=== PATIENT | male | born 1995 | race Caucasian/White ===

== ENCOUNTER 2017-10-06 01:12 | Emergency (ER) | payer MEDICAID, OTHER ==
[2017-10-06] MEDS ORDERED: NS 0.9% 1000 ML* 1,000 ML IV ONE (01:29)
[2017-10-06] MEDS ORDERED: Morphine INJ* 2 MG/ML 1 ML SYRINGE (TWO MG - NEW SYRINGE VERSION) IV ONE ×2 (01:30→03:08)
[2017-10-06] MEDS ORDERED: Metoclopramide IV* 5 MG/ML 2 ML VIAL IV SLOW PU ONE (01:30)
[2017-10-06 01:45] LABS: ABS Basophils 0 10^3/ul (0-0.2); ABS Eosinophils 0.1 10^3/ul (0-0.6); ABS Lymphocytes 2.8 10^3/ul (1.0-4.8); ABS Monocytes 0.6 10^3/ul (0-0.8); ABS Neutrophils 3.1 10^3/ul (1.5-7.7); ABS Nucleated RBC 0 10^3/ul; Hematocrit 42 % (42-52); Hemoglobin 14.6 g/dl (14.0-18.0); Lymphocyte % 42.2 % (25-47); Mean Corpuscular HGB Conc 35 g/dl (31-36); Mean Corpuscular Hemoglobin 31 pg (27-31); Mean Corpuscular Volume 90 fL (80-94); Mean Platelet Volume 7.1 um3 (7.4-10.4); Nucleated Red Blood Cells % 0.1; Platelet Count 184 10^3/ul (150-450); Red Blood Count 4.68 10^6/ul (4.00-5.40); Red Cell Distribution Width 13 % (10.5-15); White Blood Count 6.5 10^3/ul (3.5-10.8)
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
[2017-10-06 02:00] LABS: EGFR Non-African American 114.9 (>60)
[2017-10-06 02:02] LABS: INR 0.94 (0.77-1.02)
[2017-10-06] MEDS ORDERED: Iohexol 300* (CONTRAST) 10 ML SDV IV ONE (02:09)
[2017-10-06 03:53] VITALS: BP 119/69
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
== END 2017-10-06 03:51 | disposition home or self-care (01) ==
LOC: ED 01:12
DX: S20.211A Contusion of right front wall of thorax, initial encounter (principal); V86.56XA Driver of dirt bike or motor/cross bike injured in nontraffic accident, initial encounter; Y93.55 Activity, bike riding; Y92.480 Sidewalk as the place of occurrence of the external cause; F17.210 Nicotine dependence, cigarettes, uncomplicated
CPT/HCPCS: 36415; 71260; 74177; 80053; 82150; 82550; 83690; 85025; 85610; 85730; 96361; 96374; 96375; 96376; 99284; J2270; J2765; Q9967

== ENCOUNTER 2018-11-18 10:12 | Emergency (ER) | payer OTHER ==
--- NOTE | 2018-11-18 11:50 | ED ---
Lower Extremity - HPI Summary HPI Summary: This patient is a 23 year old M [facility] with a chief complaint of right thigh pain due to a chain that holds boards scraping across his right thigh and then a fall over the chain that occurred at work, with pain that has since worsened. 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 Patient states that he had to get up on the 3 foot platform in order to adjust the board of wood. Patient states that he turned around and slipped off the platform and landed on the chain. As a result the patient injured his right thigh. Patient states that he did not hit his head, but he did fall forward across the chain, but did not fall to the ground. The patient rates the pain 6/10 at rest and 8/10 when bearing weight characterized as sharp. Symptoms aggravated by bearing weight on right leg. Symptoms alleviated by nothing. Patient also explained that he has cold like symptoms that started on 11/17/18 which are unrelated. Patient states that these cold symptoms are cough and runny nose. Patient states that he took cough medicine for these symptoms, but he did not take pain medication for the right thigh pain. Patient reports bruise on right thigh and right thigh pain. Patient denies JUDD. Pt states he was able to finish his work day on 11/16/18 but did not go to work yesterday on 11/17/18 due to pain, and then presented to the ED today by private car with his grandfather driving, due to the pain. Allergies Allergy/AdvReac Type Severity Reaction Status Date / Time No Known Allergies Allergy Verified 11/18/18 10:17 - History of Current Complaint Chief Complaint: EDExtremityLower Stated Complaint: RT LEG INJ PER PT Time Seen by Provider: 11/18/18 11:33 Hx Obtained From: Patient Mechanism Of Injury: Direct Blow - from chain to right thigh, Fall From Height Of: - standing, but at 3 feet above ground. Fell across chain that holds boards at work Onset of Pain: Immediate Onset/Duration: Still Present - since 11/16/18 Severity Initially: Moderate Severity Currently: Severe Pain Intensity: 8 Pain Scale Used: 0-10 Numeric Timing: Constant Location: Is Discrete @ - right thigh Character Of Pain: Sharp Associated Signs And Symptoms: Positive: Bruising - right thigh, Other - Negative-head injury, Positive-right thigh pain, cough, runny nose Aggravating Factor(s): Weight Bearing Alleviating Factor(s): Nothing Able to Bear Weight: No - not without pain or limping Related History: Occupational Injury - Allergies/Home Medications Allergies/Adverse Reactions: Allergies Allergy/AdvReac Type Severity Reaction Status Date / Time No Known Allergies Allergy Verified 11/18/18 10:17 PMH/Surg Hx/FS Hx/Imm Hx Previously Healthy: Yes Endocrine/Hematology History: Denies: Hx Diabetes Cardiovascular History: Denies: Hx Hypertension History: Denies: Hx Renal Disease - Surgical History Surgical History: None Infectious Disease History: No Infectious Disease History: Denies: Traveled Outside the [place] in Last 30 Days - Family History Known Family History: Positive: Other - COPD Negative: Hypertension, Diabetes - Social History Occupation: Employed Full-time Alcohol Use: None Hx Substance Use: Yes Substance Use Type: Reports: Marijuana, Other - pt with prior hx heroin IVDU Hx Tobacco Use: Yes Smoking Status (MU): Current Every Day Smoker Type: Cigarettes Review of Systems Constitutional: Negative Positive: Nasal Discharge Cardiovascular: Negative Positive: Cough Gastrointestinal: Negative Positive: no symptoms reported Positive: Other - right thigh pain Positive: Bruising Negative: Headache Psychological: Normal All Other Systems Reviewed And Are Negative: Yes Physical Exam - Summary Physical Exam Summary: Appearance: well-appearing, moderate pain distress, well-nourished Skin: Warm, color reflects adequate perfusion, dry, 8 cm in diameter purple and yellow ecchymosis, painful to touch at right distal femur. Head: Normal Head/Face inspection, atraumatic Eyes: Conjunctiva clear ENT: Normal inspection Neck: Supple, no nodes, no JVD, no spinal tenderness Respiratory: Lungs clear, normal breath sounds, no respiratory distress Cardio: RRR, No murmur, pulses normal, brisk capillary refill Abdomen: Soft, nontender, nondistended, no masses, no guarding, no rebound Bowel sounds: Present Musculoskeletal: Strength Intact/ROM intact, no right leg bony tenderness especially in area of ecchymosis, no right leg hematoma in area of ecchymosis, no deformity of right leg; point tenderness on right lateral hip; pelvis stable on compression; no right knee deformity or tenderness on right foot or ankle, distal pulses intact, sensation intact, no calf tenderness, no edema. Psychological: Normal Neuro: Alert, muscle tone normal, no focal deficit Triage Information Reviewed: Yes Vital Signs On Initial Exam: Initial Vitals Temp Pulse Resp BP Pulse Ox 98.4 F 81 16 139/71 99 11/18/18 10:15 11/18/18 10:15 11/18/18 10:15 11/18/18 10:15 11/18/18 10:15 Vital Signs Reviewed: Yes Diagnostics - Vital Signs Vital Signs Temp Pulse Resp BP Pulse Ox 11/18/18 10:15 98.4 F 81 16 139/71 99 - Laboratory Lab Statement: Any lab studies that have been ordered have been reviewed, and results considered in the medical decision making process. - Radiology Hip/Pelvis Xray Radiology Interpretation Completed By: Radiologist Summary of Radiographic Findings: Hip/Pelvis Xray reveals, per radiologist, IMPRESSION: NO ACUTE OSSEOUS INJURY. NO RADIOGRAPHIC EVIDENCE FOR HIP FRACTURE. X-RAYS MAY BE NEGATIVE WITH NONDISPLACED HIP FRACTURE, IF THERE IS PERSISTENT CLINICAL CONCERN, RECOMMEND CONSIDERATION OF MRI. IN THE SETTING OF CONTRAINDICATION TO MRI OR LIMITATION IN EMERGENT ACCESS TO MRI, CT WOULD BE SUGGESTED. ED Physician has reviewed this report. Right Femur Xray Radiology Interpretation Completed By: Radiologist Summary of Radiographic Findings: Right Femur Xray reveals, per radiologist, IMPRESSION: NO ACUTE OSSEOUS INJURY. NO RADIOGRAPHIC EVIDENCE FOR HIP FRACTURE. X-RAYS MAY BE NEGATIVE WITH NONDISPLACED HIP FRACTURE, IF THERE IS PERSISTENT CLINICAL CONCERN, RECOMMEND CONSIDERATION OF MRI. IN THE SETTING OF CONTRAINDICATION TO MRI OR LIMITATION IN EMERGENT ACCESS TO MRI, CT WOULD BE SUGGESTED. ED Physician has reviewed this report. Re-Evaluation - Re-Evaluation First Eval Re-Evaluation Time: 12:50 Change: Unchanged Comment: Pt requests pain medication. Will give acetaminophen. Pt unable to ambulate without limp. Will give crutches. Grandfather with pt. Lower Extremity Course/Dx - Course Course Of Treatment: This patient is a 23 year old M [facility] by grandfather with a chief complaint of right thigh pain due to being struck by a [employer] holding boards and a subsequent fall over the chain that occurred at work on 11/16/18 with pain that has since worsened. Hip/Pelvis Xray reveals, per radiologist, IMPRESSION: NO ACUTE OSSEOUS INJURY. NO RADIOGRAPHIC EVIDENCE FOR HIP FRACTURE. X-RAYS MAY BE NEGATIVE WITH NONDISPLACED HIP FRACTURE, IF THERE IS PERSISTENT CLINICAL CONCERN, RECOMMEND CONSIDERATION OF MRI. IN THE SETTING OF CONTRAINDICATION TO MRI OR LIMITATION IN EMERGENT ACCESS TO MRI, CT WOULD BE SUGGESTED. ED Physician has reviewed this report. Right Femur Xray reveals, per radiologist, IMPRESSION: NO ACUTE OSSEOUS INJURY. NO RADIOGRAPHIC EVIDENCE FOR HIP FRACTURE. X-RAYS MAY BE NEGATIVE WITH NONDISPLACED HIP FRACTURE, IF THERE IS PERSISTENT CLINICAL CONCERN , RECOMMEND CONSIDERATION OF MRI. IN THE SETTING OF CONTRAINDICATION TO MRI OR LIMITATION IN EMERGENT ACCESS TO MRI, CT WOULD BE SUGGESTED. ED Physician has reviewed this report. In the ED course the patient was given Tylenol Tab 650 mg. He was also given crutches and crutch draining. Pt is advised to continue using crutches. Pt is given a work release. Patient will be discharged will follow up from Dr. Jose R Russell, and with ortho prn. The patient is agreeable with this plan. - Diagnoses Differential Diagnosis/HQI/PQRI: Positive: Compartment Syndrome, Contusion, DVT , Fracture (Closed), Sprain, Strain Provider Diagnoses: Contusion of right thigh Discharge ED - Sign-Out/Discharge Documenting (check all that apply): Patient Departure - discharge to home with grandfather driving Patient Received Moderate/Deep Sedation with Procedure: No - Discharge Plan Condition: Stable Disposition: HOME Prescriptions: Ibuprofen TAB* [Motrin TAB* 600 MG] 600 mg PO Q6H PRN #20 tab PRN Reason: Pain - Moderate Patient Education Materials: Crutch Instructions (ED), Contusion in Adults (ED) Forms: *Work Release Referrals: Jose R Grace MD [Medical Doctor] - If Needed Drew PETERSON,Jose R Kaplan [Primary Care Provider] - If Needed Additional Instructions: Your xrays of your hip, pelvis and femur did not show any fractures or acute abnormalities. We have given you a copy of these reports. We have given you a work release until Friday11/23/18. You will need to use crutches for weight bearing until you can bear full weight on the right leg without pain. You should continue to rest and apply ice. See orthopedics (Dr. Grace's name provided) if it continues to cause pain, and you cannot bear full weight. We have prescribed ibuprofen 600mg that you may take every 6 hrs as needed for pain. You were given acetaminophen (Tylenol) for pain in the ER at 1:00pm. You may continue to take Tylenol and ibuprofen both, as needed and as directed, for pain. Return to the ER if any new or worsening symptoms. - Billing Disposition and Condition Condition: STABLE Disposition: Home - Attestation Statements Document Initiated by Alice: Yes Documenting Scribe: Hortencia Olguin Provider For Whom Alice is Documenting (Include Credential): Dr. Tegan Marquez MD Scribe Attestation: Hortencia Wei scribed for Dr. Tegan Marquez MD on 11/19/18 at 0038. Scribe Documentation Reviewed: Yes Provider Attestation: The documentation as recorded by the Hortencia lerner accurately reflects the service I personally performed and the decisions made by , Dr. Tegan Marquez MD Status of Scribe Document: Viewed
[2018-11-18] MEDS ORDERED: Acetaminophen TAB* 325 MG PO ONE (12:49)
[2018-11-18 13:17] VITALS: BP 117/69
== END 2018-11-18 13:16 | disposition home or self-care (01) ==
LOC: ED 10:12
DX: S70.11XA Contusion of right thigh, initial encounter (principal); W18.09XA Striking against other object with subsequent fall, initial encounter; Y93.89 Activity, other specified; Y92.9 Unspecified place or not applicable; Y99.0 Civilian activity done for income or pay; R05 Cough; J34.89 Other specified disorders of nose and nasal sinuses; F17.210 Nicotine dependence, cigarettes, uncomplicated
CPT/HCPCS: 99283; A9270-GY